=== PATIENT | female | born 1995 | race Caucasian/White ===

== ENCOUNTER → 2016-05-27 | Outpatient (CLI) | payer OTHER ==
--- NOTE | 2016-05-27 14:29 | EKG ---
[address] [address] [address] Rate: 66 P: -11 NM: 133 QRS: 77 QRSD: 100 T: 49 QT: 398 QTc: 412 Interpretive Statements SINUS RHYTHM Compared to ECG 12/10/2015 10:02:53 No significant changes Electronically Signed On 05-27-16 17:56:16 MST by Josh Funk [email or web address]
== END ==
LOC: MOB EKG 13:01
PROVIDERS: ATTEND Specialist
DX: R55 Syncope and collapse (principal)
CPT/HCPCS: 93005; 93010

== ENCOUNTER → 2016-07-21 | Outpatient (CLI) | payer OTHER ==
--- NOTE | 2016-07-21 20:56 | DI ---
MRI LUMBAR SPINE SCAN WITHOUT IV CONTRAST, 07/21/2016 9:53 AM: Clinical History: Acute low back pain. Previous Exam: None. Technique: Sagittal and axial T2 weighted; sagittal T1 weighted and T2 STIR; and axial PD. The vertebral bodies are of normal height and size. There is mild disc space narrowing at L4-5. The d isc spaces from L3-4 through L5-S1 show desiccation change. The remaining lumbar discs are of normal height and signal pattern. The cord terminates at T12 and the conus medullaris is normal. The disc sp aces from T10-11 through L2-3 are normal. L3-4 has a small bulging but not herniated disc that lies j ust to the left of midline, without canal or neural foraminal stenosis. L4-5 has a midline bulging bu t not herniated disc with associated midline disc annulus tear. There is no canal or neural foraminal stenosis. L5-S1 has a very small midline disc bulge without canal or neural foraminal stenosis. Readin. There are bulging but not herniated discs without canal or neural foraminal stenosis from L3-4 th rough L5-S1. There is a midline disc annulus tear at L4-5. 2. The disc spaces from T10-11 through L2-3 are normal.
== END ==
LOC: MRI 09:53
PROVIDERS: ATTEND Physician Assistant Medical
DX: M54.5 Low back pain (principal); M47.817 Spondylosis without myelopathy or radiculopathy, lumbosacral region; M47.816 Spondylosis without myelopathy or radiculopathy, lumbar region
CPT/HCPCS: 72148

== ENCOUNTER → 2016-12-09 | Outpatient (CLI) | payer OTHER ==
[2016-12-09 12:48] LABS: BILIRUBIN,URINE NEGATIVE (NEG); CLARITY,URINE CLEAR (CLEAR); COLOR,URINE YELLOW; GLUCOSE, URINE (UA) NEGATIVE (NEG); NITRATE,URINE NEGATIVE (NEG); OCCULT BLOOD,URINE NEGATIVE (NEG); PH,URINE 8.5 (5.0-8.5); PROTEIN,URINE NEGATIVE (NEG); UROBILINOGEN,URINE 0.2 mg/dL (0.2)
[2016-12-09 12:53] LABS: SQUAMOUS EPITHELIAL CELL,UR MANY; URINE SAMPLE TYPE VOIDED SPECIMEN
== END ==
LOC: MOB LAB 11:07
PROVIDERS: ATTEND Obstetrics & Gynecology
DX: R30.0 Dysuria (principal); N36.8 Other specified disorders of urethra; N76.0 Acute vaginitis
CPT/HCPCS: 81001; 87088; 87491; 87591